=== PATIENT | male | born 1940 | race Two or more races ===

== ENCOUNTER 2023-01-19 12:41 | Inpatient (IN) | payer OTHER, MEDICAID ==
[~2023-01-19] VITALS: Ht 175.3 cm; Wt 77.0 kg
[2023-01-19] MEDS ORDERED: ASPirin 81 mg TAB PO ONE (13:30)
[2023-01-19 13:37] LABS: Basophils # (auto) 0.1 10 ^3/uL (0-0.2); Basophils % (auto) 1.2 % (0.0-2.0); Eosinophils # (auto) 0 10 ^3/uL (0-0.8); Eosinophils % (auto) 0.9 % (0.0-7.0); Hematocrit 39.5 % (41.0-53.0); Hemoglobin 13.5 g/dL (13.5-17.5); Lymphocytes # (auto) 0.7 10 ^3/uL (0.4-5.4); Lymphocytes % (auto) 13.1 % (10.0-50.0); Mean Corpuscular Hemoglobin 31.2 pg (28.0-32.0); Mean Corpuscular Hgb Conc. 34.2 g/dL (32.0-36.0); Mean Corpuscular Volume 91.2 fL (80.0-100.0); Monocytes # (auto) 0.1 10 ^3/uL (0-1.3); Monocytes % (auto) 2.9 % (0.0-12.0); Neutrophils # (auto) 4.2 10 ^3/uL (1.6-8.6); Neutrophils % (auto) 81.9 % (37.0-80.0); Nucleated Red Blood Cells % 0.1 %; Red Blood Cells 4.33 10^6/uL (4.5-5.90); Red Cell Distribution Width 14.8 % (11.8-14.3); White Blood Cell 5.1 10^3/uL (4.4-10.8)
[2023-01-19 14:01] LABS: INR 1.04 (0.9-1.15); Partial Thromboplastin Time 26.1 sec (24.6-33.4)
[2023-01-19 14:14] LABS: Albumin 3.8 g/dL (3.4-5.0); Calcium 8.9 mg/dL (8.5-10.1); Potassium 4.2 mmol/L (3.5-5.1)
[2023-01-19 14:18] LABS: BUN/Creatinine Ratio 18.6 (10.0-20.0); Bilirubin, Total 0.9 mg/dL (0.2-1.0); Total Protein 7.7 g/dL (6.4-8.2)
[2023-01-19] MEDS: SODIUM CHLORIDE 0.9% 1,000 ML IV SCH (16:00)
[2023-01-19] MEDS ORDERED: ACETAMINOPHEN 325 MG TAB PO PRN (16:00)
[2023-01-19] MEDS ORDERED: MORPHINE SULFATE INJ 2 MG/ml SYRG IV PRN (16:00)
[2023-01-19] MEDS ORDERED: NITROGLYCERIN 0.4 MG SL TAB SL PRN (16:00)
[2023-01-19] MEDS ORDERED: ONDANSETRON HCL 4 MG/2 ML VIAL IV PRN (16:00)
[2023-01-19] MEDS ORDERED: LISI-716 PO (16:07)
[2023-01-19] MEDS ORDERED: ATOR10TA52 PO (16:07)
[2023-01-19] MEDS ORDERED: DOXA4TAB6 PO (16:07)
[2023-01-19] MEDS ORDERED: FIN5T PO (16:07)
[2023-01-19] MEDS: ENOXAPARIN SOD 40 MG/0.4 ML SYRINGE SC SCH (16:41)
[2023-01-19] MEDS: ATORVASTATIN 20 MG TAB PO SCH (23:38)
[2023-01-20 04:53] LABS: Urine Bacteria NONE SEEN /hpf (None Seen); Urine Blood TRACE /uL (Negative); Urine Mucus FEW (None Seen); Urine Specific Gravity 1.026 (1.001-1.035); Urine WBC 3 /hpf (0 - 3)
[2023-01-20 05:00] VITALS: BP 141/58
[2023-01-20 05:04] LABS: Alcohol, Urine < 3.0 mg/dL (0-10); Amphetamine Screen, Urine NEGATIVE (NEGATIVE); Barbiturate Scree,Urine NEGATIVE (NEGATIVE); Benzodiazephine Screen, Urine NEGATIVE (NEGATIVE); Cannabinoid Screen, Urine NEGATIVE (NEGATIVE); Cocaine Screen, Urine NEGATIVE (NEGATIVE); Opiate Scree,Urine NEGATIVE (NEGATIVE); Phencyclidine Screen, Urine NEGATIVE (NEGATIVE)
[2023-01-20] MEDS: SODIUM CHLORIDE 0.9% 1,000 ML IV SCH (06:18)
[2023-01-20 06:28] LABS: Basophils # (auto) 0 10 ^3/uL (0-0.2); Basophils % (auto) 0.7 % (0.0-2.0); Eosinophils # (auto) 0.3 10 ^3/uL (0-0.8); Eosinophils % (auto) 5.9 % (0.0-7.0); Hematocrit 38.2 % (41.0-53.0); Lymphocytes # (auto) 0.8 10 ^3/uL (0.4-5.4); Mean Corpuscular Hemoglobin 30.9 pg (28.0-32.0); Mean Corpuscular Hgb Conc. 34.1 g/dL (32.0-36.0); Mean Corpuscular Volume 90.8 fL (80.0-100.0); Monocytes # (auto) 0.4 10 ^3/uL (0-1.3); Monocytes % (auto) 9.3 % (0.0-12.0); Neutrophils # (auto) 2.9 10 ^3/uL (1.6-8.6); Neutrophils % (auto) 65.1 % (37.0-80.0); Red Blood Cells 4.21 10^6/uL (4.5-5.90); Red Cell Distribution Width 14.6 % (11.8-14.3); White Blood Cell 4.4 10^3/uL (4.4-10.8)
[2023-01-20 06:30] LABS: Albumin 3.3 g/dL (3.4-5.0); Calcium 8.5 mg/dL (8.5-10.1)
[2023-01-20 06:34] LABS: BUN/Creatinine Ratio 19.8 (10.0-20.0); Bilirubin, Total 0.8 mg/dL (0.2-1.0); Total Protein 6.8 g/dL (6.4-8.2)
[2023-01-20 09:00] VITALS: BP 118/52
[2023-01-20] MEDS: FINASTERIDE 5 MG TAB PO SCH (09:53)
[2023-01-20] MEDS: LISINOPRIL 10 MG TAB PO SCH (09:53)
[2023-01-20] MEDS: ASPirin 81 mg TAB PO SCH (09:54)
[2023-01-20] MEDS: ENOXAPARIN SOD 40 MG/0.4 ML SYRINGE SC SCH (09:54)
[2023-01-20] MEDS ORDERED: PANTOPRAZOLE 40 MG TAB PO SCH (10:00)
[2023-01-20 13:00] VITALS: BP 101/65
[2023-01-20] MEDS ORDERED: LORazepam 2MG/ML-1ML VIAL IV ONE (14:15)
[2023-01-20] MEDS ORDERED: MECLIZINE HCL 25 MG TAB PO ONE (14:15)
[2023-01-20 16:59] VITALS: BP 138/55
[2023-01-20 20:00] VITALS: BP 149/71
[2023-01-20] MEDS: MECLIZINE HCL 25 MG TAB PO SCH (21:28)
[2023-01-20] MEDS: ATORVASTATIN 20 MG TAB PO SCH (21:28)
[2023-01-20 22:00] VITALS: BP 149/71
[2023-01-21] VITALS (7 sets, daily range): BP systolic 92–146; BP diastolic 53–64
[2023-01-21] MEDS: MECLIZINE HCL 25 MG TAB PO SCH ×3 (06:07→22:11)
[2023-01-21] MEDS: FINASTERIDE 5 MG TAB PO SCH (09:42)
[2023-01-21] MEDS: PANTOPRAZOLE 40 MG TAB PO SCH (09:42)
[2023-01-21] MEDS: ASPirin 81 mg TAB PO SCH (09:42)
[2023-01-21] MEDS: ENOXAPARIN SOD 40 MG/0.4 ML SYRINGE SC SCH (09:43)
[2023-01-21] MEDS: LISINOPRIL 10 MG TAB PO SCH (09:47)
[2023-01-21] MEDS ORDERED: PANTOPRAZOLE 40 MG TAB PO SCH (10:00)
[2023-01-21] MEDS: ATORVASTATIN 20 MG TAB PO SCH (22:11)
[2023-01-22 05:00] VITALS: BP 139/56
[2023-01-22] MEDS: MECLIZINE HCL 25 MG TAB PO SCH ×2 (05:34→13:30)
[2023-01-22 09:00] VITALS: BP 135/66
[2023-01-22] MEDS: FINASTERIDE 5 MG TAB PO SCH (09:52)
[2023-01-22] MEDS: PANTOPRAZOLE 40 MG TAB PO SCH (09:52)
[2023-01-22] MEDS: ASPirin 81 mg TAB PO SCH (09:52)
[2023-01-22] MEDS: LISINOPRIL 10 MG TAB PO SCH (09:53)
[2023-01-22] MEDS ORDERED: MECL25TA18 PO (11:07)
[2023-01-22 11:35] VITALS: BP 135/66
[2023-01-22 13:00] VITALS: BP 114/53
== END 2023-01-22 14:13 | disposition home or self-care (01) | DRG 149 ==
LOC: ER 12:41 → EDBD 12:41 → TELE 16:07 → TELE-EAST 22:16
PROVIDERS: ADMIT Nurse Practitioner Family; ATTEND Internal Medicine
DX: H81.13 Benign paroxysmal vertigo, bilateral (principal); I24.9 Acute ischemic heart disease, unspecified; J98.11 Atelectasis; E78.5 Hyperlipidemia, unspecified; E86.0 Dehydration; I10 Essential (primary) hypertension; F17.200 Nicotine dependence, unspecified, uncomplicated; I25.10 Atherosclerotic heart disease of native coronary artery without angina pectoris; R26.9 Unspecified abnormalities of gait and mobility; R00.1 Bradycardia, unspecified; N40.0 Benign prostatic hyperplasia without lower urinary tract symptoms; I45.10 Unspecified right bundle-branch block; I25.2 Old myocardial infarction
CPT/HCPCS: 36415; 70551; 71045; 80053; 80061; 80307; 81001; 83735; 83880; 84484; 85025; 85610; 85730; 93005; 93306; 97110; 97163; 97530; G0378

== ENCOUNTER 2024-09-09 09:00 | Emergency (ER) | payer OTHER, MEDICAID ==
[~2024-09-09] VITALS: Ht 175.3 cm; Wt 88.6 kg
[~2024-09-09 09:00] MED LIST: ATOR10TA52 PO; DOXA4TAB83 PO; FIN5T PO; LISI10TA34 PO; MECL-90 PO
[2024-09-09 09:44] VITALS: BP 132/74; PULSE 90; RESP 18; TEMP 98; O2SAT 96
--- NOTE | 2024-09-09 09:48 | ED.PDOC ---
SOB-HPI HPI Comments A 84 YEAR OLD MALE PRESENTS TO THE ED WITH CHIEF COMPLAINT OF COUGH. PATIENT REPORTS THAT HE HAS BEEN EXPERIENCING A COUGH WITH ASSOCIATED SORE THROAT AND HEADACHE SINCE 1AM THIS MORNING. PATIENT DENIES ANY N/V/D, ABDOMINAL PAIN, CHILLS, SOB, CHEST PAIN, OR DIZZINESS. PT IS ALERT, ORIENTATION X4 WITH NORMAL GAIT. NO OTHER SYMPTOMS REPORTED AT THIS TIME OF CARE. Chief Complaint: Flu like Time Seen by MD: 09:44 Reviewed notes: Nurses Notes, Medications, Allergies Mode of Arrival: Ambulatory Severity: Moderate Timing: Hours Duration: Since onset Context: At Rest PE Risk Factors: None History of: None Prehospital treatment: None Modifying Factors: Inhaler Associated Signs and Symptoms: Cough, Sore Throat If cough with SOB: Non-Productive Past Medical History PAST MEDICAL HISTORY: Asthma, HTN, [place] Surgical History: Hernia Repair Family History Family History: Reviewed,noncontributory to illness Social History Smoker: Non-Smoker Alcohol: Denies ETOH Use Drugs: Denies Drug Use Lives In: Home Constitutional: denies: chills, diaphoresis, fatigue, fever, malaise, sweats, weakness, others EENTM: reports: throat pain; denies: blurred vision, double vision, ear bleeding, ear discharge, ear drainage, ear pain, ear ringing, eye pain, eye redness, hearing loss, mouth pain, mouth swelling, nasal discharge, nose bleedi ng, nose congestion, nose pain, photophobia, tearing, throat swelling, voice changes, others Respiratory: reports: cough; denies: hemoptysis, orthopnea, SOB at rest, shortness of breath, SOB with excertion, stridor, wheezing, others Cardiovascular: denies: chest pain, dizzy spells, diaphoresis, Dyspnea on exertion, edema, irregular heart beat, left arm pain, lightheadedness, palpitations, PND, syncope, others Gastrointestinal: denies: abdomen distended, abdominal pain, blood streaked bowels, constipated, diarrhea, dysphagia, difficulty swallowing, hematemesis, melena, nausea, poor appetite, poor fluid intake, rectal bleeding, rectal pain, vomiting, others Genitourinary: denies: burning, dysuria, flank pain, frequency, hematuria, incontinence, penile discharge, penile sore, pain, testicle pain, testicle swelling, urgency, others Neurological: reports: headache; denies: dizziness, fainting, left sided numbness, left sided weakness, numbness, paresthesia, pre-existing deficit, right sided numbness, right sided weakness, seizure, speech problems, tingling, tremors, weakness, others Musculoskeletal: denies: back pain, gout, joint pain, joint swelling, muscle pain, muscle stiffness, neck pain, others Integumetry: denies: bruises, change in color, change in hair/nails, dryness, laceration, lesions, lumps, rash, wounds, others Allergic/Immunocompromised: denies: Difficulty Healing, Frequent Infections, Hives, Itching, others Hematologic/Lymphatic: denies: anemia, blood clots, easy bleeding, easy bruising, swollen glands, others Endocrine: denies: excessive hunger, excessive sweating, excessive thirst, excessive urination, flushing, intolerance to cold, intolerance to heat, unexplained weight gain, unexplained weight loss, others Psychiatric: denies: anxiety, bipolar disorder, depression, hopeless, panic disorder, schizophrenia, sleepless, suicidal, others All Other Systems: Reviewed and Negative Physical Exam General Appearance: No Apparent Distress, Normal HEENT: Normal ENT Inspection, PERRL/EOMI Neck: Full Range of Motion, Non-Tender, Normal, Normal Inspection Respiratory: Chest Non-Tender, Lungs Clear, No Accessory Muscle Use, No Respiratory Distress, Normal Breath Sounds Cardiovascular: No Edema, No JVD, No Murmur, No Gallop, Normal Peripheral Pulses, Regular Rate/Rhythm Breast Exam: Deferred Gastrointestinal: No Organomegaly, Non Tender, No Pulsatile Mass, Normal Bowel Sounds, Soft Genitalia: Deferred Pelvic: Deferred Rectal: Deferred Extremities: No calf tenderness, Normal capillary refill, Normal inspection, Normal range of motion, Non-tender, No pedal edema Musculoskeletal : Apperance: Normal Neurologic: Alert, shop coordinator II-XII nml as Tested, No Motor Deficits, Normal Affect, Normal Mood, No Sensory Deficits Cerebellar Function: Normal Reflexes: Normal Skin: Dry, Normal Color, Warm Lymphatic: No Adenopathy Was a procedure done? Was a procedure done?: No Differential Dx Differential Diagnosis: Asthma, Bronchitis, Pneumonia, Sinusitis, Allergic Rhinitis, Otitis Media, Pharyngitis X-Ray, Labs, Meds, VS Vital Signs Date Time Temp Pulse Resp B/P (MAP) Pulse Ox O2 Delivery O2 Flow Rate FiO2 09/09/24 09:44 98.0 90 18 132/74 (93) 96 98.0 09/09/24 09:08 97.9 94 18 136/70 (92) 95 Current Medications Medications (Trade) Dose Ordered Sig/Anne Route Start Time Stop Time Status Last Admin Ceftriaxone Sodium (Rocephin) 1,000 mg ONCE ONCE IM 09/09/24 09:45 09/09/24 09:46 DC 09/09/24 10:00 CHEST XR: PATIENT: MADALYN LAROSECCT: [id number]: [id number] : 1940 LOC: ER ROOM / BED: / AGE / SEX: 84 / M ADM STATUS: REG ER SERVICE 0 ORDERING PHYSICIAN: SHIRA DELGADO PROCEDURE(s): CXR2 - CHEST TWO VIEWS ROUTINE REASON: COUGH ORDER NUMBER(s): [id number], ACCESSION NUMBER(s): [id number] CHEST RADIOGRAPH Indication: COUGH Technique: Frontal and lateral view of the chest was obtained Comparison: None FINDINGS: Lines and Tubes: None Lungs: Clear Pleura: No effusion. No pneumothorax. Cardiomediastinal contours: Unremarkable Bones: Unremarkable IMPRESSION: 1. 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 2. Normal heart size 3. No infiltrates. X-Ray, Labs, Meds, VS Comment EXTERNAL MEDICAL RECORDS REVIEWED: [NONE] INDEPENDENT HISTORIANS: [NONE] SOCIAL DETERMINANTS OF HEALTH: [NONE] LABS ORDERED: NONE REVIEWED AND INTERPRETED RESULTS: CHEST XR IMAGING ORDERED: CHEST XR TREATMENTS ORDERED: ROCEPHIN 1G IM PROCEDURES PERFORMED: NONE CRITICAL CARE TIME: NONE BASED ON HISTORY OF PRESENT ILLNESS, AND PHYSICAL EXAM, PATIENT WILL BE DISCHARGED HOME. DISCUSSED PLAN FOR DISCHARGE HOME WITH RX []. MEDICATION WARNINGS GIVEN. SHARED DECISION MAKING: DISCUSSED WITH PATIENT THAT THEIR WORKUP WAS NORMAL. PATIENT INSTRUCTED TO FOLLOW UP WITH PRIMARY CARE PROVIDER IN 1-2 DAYS FOR RE- EVALUATION OF SYMPTOMS. PATIENT VERBALIZES UNDERSTANDING TO RETURN TO ED FOR NEW OR WORSENING SYMPTOMS OR IF FOLLOW UP WITH PCP CANNOT BE OBTAINED. PATIENT FEELS COMFORTABLE GOING HOME AT THIS TIME. ALL QUESTIONS ADDRESSED AT TIME OF DISCHARGE. Time of 1ST Reevaluation: 10:00 Reevaluation 1ST: Unchanged Patient Education/Counseling: Diagnosis, Treatment Family Education/Counseling: No Family Present Departure 1 Departure Time of Disposition: 10:23 Impression: Primary Impression: Acute tonsillitis Qualified Codes: J03.90 - Acute tonsillitis, unspecified Additional Impression: URI (upper respiratory infection) Qualified Codes: J03.90 - Acute tonsillitis, unspecified Disposition: HOME / SELF CARE / HOMELESS Condition: Stable Additional Instructions: FOLLOW-UP WITH PCP IN 1 TO 2 DAYS. TAKE MEDICATIONS PRESCRIBED. RETURN TO ED FOR ANY NEW OR WORSENING SYMPTOMS. e-Prescriptions Acetaminophen (Tylenol 8 Hour Arthritis) 650 Mg Tab 650 MG PO TID, #30 TAB Prov: SHIRA DELGADO 09/09/24 Azithromycin (Azithromycin) 500 Mg Tab 1 TAB PO DAILY, #5 TAB Prov: SHIRA DELGADO 09/09/24 Discharged With: Self Critical Care Note Critical Care Time?: No Stability Stability form required: No Heart Score Heart Score: Heart Score Response (Comments) Value History N/A 0 EKG N/A 0 Age N/A 0 Risk Factors N/A 0 Troponin N/A 0 Total 0 I personally scribed for SHIRA DELGADO ([email or web address]) on 09/09/24 at 09:48. Electronically submitted by Pk Dunn ([email or web address]). I personally scribed for SHIRA DELGADO ([email or web address]) on 09/09/24 at 10:20. Electronically submitted by Pk Dunn ([email or web address]). I personally scribed for SHIRA DELGADO ([email or web address]) on 09/09/24 at 10:23. Electronically submitted by Pk Dunn ([email or web address]). SHIRA DELGADO Sep 09, 2024 09:48
[2024-09-09] MEDS: cefTRIAXone SOD 1,000 MG VL IM ONE (10:00)
--- NOTE | 2024-09-09 10:06 | DVH ---
CHEST RADIOGRAPH Indication: COUGH Technique: Frontal and lateral view of the chest was obtained Comparison: None FINDINGS: Lines and Tubes: None Lungs: Clear Pleura: No effusion. No pneumothorax. Cardiomediastinal contours: Unremarkable Bones: Unremarkable IMPRESSION: 1. 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 2. Normal heart size 3. No infiltrates.
[2024-09-09] MEDS ORDERED: AZIT500T66 PO (10:29)
[2024-09-09] MEDS ORDERED: ACET-1080 PO (10:29)
== END 2024-09-09 10:53 | disposition home or self-care (01) ==
LOC: ER 09:00
DX: J03.90 Acute tonsillitis, unspecified (principal); J06.9 Acute upper respiratory infection, unspecified; I10 Essential (primary) hypertension; J45.909 Unspecified asthma, uncomplicated; I25.2 Old myocardial infarction; Z98.890 Other specified postprocedural states
CPT/HCPCS: 71046; 96372; 99283; J0696

== ENCOUNTER 2024-10-03 13:06 | Emergency (ER) | payer OTHER, MEDICAID ==
[~2024-10-03] VITALS: Ht 175.3 cm; Wt 3.4 kg
[~2024-10-03 13:06] MED LIST changes: +ACET-1080 PO; +AZIT500T66 PO
[2024-10-03 15:46] VITALS: BP 153/59; PULSE 60; RESP 16; TEMP 97.5; O2SAT 95
--- NOTE | 2024-10-03 15:48 | ED.PDOC ---
SOB-HPI HPI Comments 84-year-old patient presents to the emergency room for a cough for more than 30 days. Patient states cough is productive of white phlegm. Patient states cough is worse at night. Patient denies shortness of breath. Patient had inhaler that he is using for cough. Patient denies any fever, muscle aches or chills. Patient states that he was sent here by his primary care doctor. Patient states that his primary care doctor did not give him any prescriptions for the cough or infection. Chief Complaint: Cough Time Seen by MD: 13:34 Reviewed notes: Nurses Notes Information Source: Patient Mode of Arrival: Ambulatory Past Medical History PAST MEDICAL HISTORY: Asthma, HTN, [place] Surgical History: Hernia Repair Family History Family History: Reviewed,noncontributory to illness Social History Smoker: Non-Smoker Alcohol: Denies ETOH Use Drugs: Denies Drug Use Lives In: Home Constitutional: denies: chills, diaphoresis, fatigue, fever, malaise, sweats, weakness, others EENTM: denies: blurred vision, double vision, ear bleeding, ear discharge, ear drainage, ear pain, ear ringing, eye pain, eye redness, hearing loss, mouth pain, mouth swelling, nasal discharge, nose bleeding, nose congestion, nose pain, photophobia, tearing, throat pain, throat swelling, voice changes, others Respiratory: reports: cough (productive of white phlegm) Cardiovascular: denies: chest pain, dizzy spells, diaphoresis, Dyspnea on exertion, edema, irregular heart beat, left arm pain, lightheadedness, palpitations, PND, syncope, others Gastrointestinal: denies: abdomen distended, abdominal pain, blood streaked bowels, constipated, diarrhea, dysphagia, difficulty swallowing, hematemesis, melena, nausea, poor appetite, poor fluid intake, rectal bleeding, rectal pain, vomiting, others Genitourinary: denies: burning, dysuria, flank pain, frequency, hematuria, incontinence, penile discharge, penile sore, pain, testicle pain, testicle swe lling, urgency, others Neurological: denies: dizziness, fainting, headache, left sided numbness, left sided weakness, numbness, paresthesia, pre-existing deficit, right sided numbness, right sided weakness, seizure, speech problems, tingling, tremors, weakness, others Musculoskeletal: denies: back pain, gout, joint pain, joint swelling, muscle pain, muscle stiffness, neck pain, others Integumetry: denies: bruises, change in color, change in hair/nails, dryness, laceration, lesions, lumps, rash, wounds, others Allergic/Immunocompromised: denies: Difficulty Healing, Frequent Infections, Hives, Itching, others Hematologic/Lymphatic: denies: anemia, blood clots, easy bleeding, easy bruising, swollen glands, others Endocrine: denies: excessive hunger, excessive sweating, excessive thirst, excessive urination, flushing, intolerance to cold, intolerance to heat, unexplained weight gain, unexplained weight loss, others Psychiatric: denies: anxiety, bipolar disorder, depression, hopeless, panic disorder, schizophrenia, sleepless, suicidal, others All Other Systems: Reviewed and Negative Physical Exam General Appearance: No Apparent Distress, Normal HEENT: Normal ENT Inspection, Pharynx Normal, TMs Normal Neck: Full Range of Motion, Non-Tender, Normal, Normal Inspection Respiratory: Chest Non-Tender, Lungs Clear, No Accessory Muscle Use, No Respiratory Distress, Normal Breath Sounds Cardiovascular: No Edema, No JVD, No Murmur, No Gallop, Normal Peripheral Pulses, Regular Rate/Rhythm Breast Exam: Deferred Gastrointestinal: No Organomegaly, Non Tender, No Pulsatile Mass, Normal Bowel Sounds, Soft Genitalia: Deferred Pelvic: Deferred Rectal: Deferred Extremities: No calf tenderness, Normal capillary refill, Normal inspection, Normal range of motion, Non-tender, No pedal edema Musculoskeletal : Apperance: Normal Neurologic: Alert, assurance associate II-XII nml as Tested, No Motor Deficits, Normal Affect, Normal Mood, No Sensory Deficits Cerebellar Function: Normal Reflexes: Normal Skin: Dry, Normal Color, Warm Lymphatic: No Adenopathy Was a procedure done? Was a procedure done?: No Differential Dx Differential Diagnosis: Bronchitis, Pneumonia X-Ray, Labs, Meds, VS Vital Signs Date Time Temp Pulse Resp B/P (MAP) Pulse Ox O2 Delivery O2 Flow Rate FiO2 10/03/24 15:46 60 16 95 Room Air 10/03/24 15:46 97.5 60 16 153/59 (90) 95 97.5 10/03/24 13:38 97.5 60 16 153/59 (90) 95 PATIENT: HOMAR LAROSELISANDRO: [id number]: [id number] : 1940 LOC: ER ROOM / BED: / AGE / SEX: 84 / M ADM STATUS: REG ER SERVICE [id number] ORDERING PHYSICIAN: FELIPE DE JESUS PROCEDURE(s): CXR2 - CHEST TWO VIEWS ROUTINE REASON: cough for more than 30 days ORDER NUMBER(s): [id number], ACCESSION NUMBER(s): [id number] EXAM: XY CHEST TWO VIEWS ROUTINE TECHNIQUE: Two radiographic views of the chest CLINICAL HISTORY: cough for more than 30 days COMPARISON: XY CHEST TWO VIEWS ROUTINE on DOS: 09/09/24 Findings/Impression: Frontal and lateral chest radiographs demonstrate no acute osseous or superficial soft tissue abnormalities. The trachea is midline. The cardiac silhouette and mediastinum are within normal limits. No pneumothorax, pleural effusions, or consolidations. ATED BY: WENDIE ROCHA DO DICTATED DATE/TIME: 10/03/241613 SIGNED BY: WENDIE ROCHA DO SIGNED DATE/TIME: 10/03/241613 CC: X-Ray, Labs, Meds, VS Comment On re-evaluation patient has symptomatic improvement. Patient is stable for discharge at this time. All test results and diagnostic imaging have been interpreted. All diagnostic findings, discharge care, and education instruction provided to the patient. Follow-up with PCP in 2-3 days Patient verbalized understanding, discharge instructions and agrees to treatment plan Vital signs are stable Patient is ambulatory Patient advised of which symptoms necessitate a return visit to the emergency room. Patient to return emergency room for any new worsening symptoms. Patient is aware that the purpose of this visit is for an acute medical emergency requiring emergent stabilization. Chronic conditions, including malignancies have not been ruled out. Patient is instructed to follow up with PCP as directed for continued care and workup. If unable to arrange follow up, patient is to return to the emergency room for reassessment. Patient was given verbal and written discharge instructions and acknowledges understanding Time of 1ST Reevaluation: 16:31 Reevaluation 1ST: Improved Patient Education/Counseling: Diagnosis, Treatment, Prognosis Family Education/Counseling: No Family Present Departure 1 Departure Time of Disposition: 16:35 Impression: Primary Impression: Bronchitis Disposition: 01 HOME / SELF CARE / HOMELESS Condition: Stable e-Prescriptions Amoxicillin & Pot Clavulanate (AUGMENTIN TABLET) 875 Mg Tb 875 MG PO BID for 10 Days, #20 TAB 0 Refills Prov: FELIPE DE JESUS 10/03/24 [id number] (Bromphen/Pseudoephedrine 30-2-10 mg/5Ml) 1 Syp Syp 10 ML PO Q6HP PRN for 10 Days, #400 ML Prov: FELIPE DE JESUS 10/03/24 Critical Care Note Critical Care Time?: No Stability Stability form required: No Heart Score Heart Score: Heart Score Response (Comments) Value History N/A 0 EKG N/A 0 Age N/A 0 Risk Factors N/A 0 Troponin N/A 0 Total 0 FELIPE DE JESUS [facility] Oct 03, 2024 15:48
--- NOTE | 2024-10-03 16:17 | DVH ---
EXAM: XY CHEST TWO VIEWS ROUTINE TECHNIQUE: Two radiographic views of the chest CLINICAL HISTORY: cough for more than 30 days COMPARISON: XY CHEST TWO VIEWS ROUTINE on DOS: 09/09/24 Findings/Impression: Frontal and lateral chest radiographs demonstrate no acute osseous or superficial soft tissue abnorma lities. The trachea is midline. The cardiac silhouette and mediastinum are within normal limits. No pneumothorax, pleural effusions, or consolidations.
[2024-10-03] MEDS ORDERED: PSEU1SYP6 PO (16:33)
[2024-10-03] MEDS ORDERED: AUG875T PO (16:33)
== END 2024-10-03 16:40 | disposition home or self-care (01) ==
LOC: ER 13:06
DX: J40 Bronchitis, not specified as acute or chronic (principal); I10 Essential (primary) hypertension; I25.2 Old myocardial infarction; Z98.890 Other specified postprocedural states
CPT/HCPCS: 71046

== ENCOUNTER 2025-01-06 12:05 | Emergency (ER) | payer OTHER, MEDICAID ==
[~2025-01-06] VITALS: Ht 175.3 cm; Wt 74.7 kg
[~2025-01-06 12:05] MED LIST changes: +AUG875T PO; +PSEU1SYP6 PO
--- NOTE | 2025-01-06 12:43 | DVH ---
CHEST RADIOGRAPH Indication: flu like symptoms Technique: Single frontal view of the chest was obtained COMPARISON: XY CHEST PORTABLE on DOS: 01/19/23 FINDINGS: Lines and Tubes: None Lungs: Clear Pleura: No effusion. No pneumothorax. Cardiomediastinal contours: Unremarkable Bones: Unremarkable IMPRESSION: 1. No acute disease.
[2025-01-06 12:57] LABS: Basophils # (auto) 0.1 10 ^3/uL (0-0.2); Basophils % (auto) 1.3 % (0.0-2.0); Eosinophils # (auto) 0.3 10 ^3/uL (0-0.8); Eosinophils % (auto) 7.9 % (0.0-7.0); Hematocrit 40.7 % (41.0-53.0); Hemoglobin 13.8 g/dL (13.5-17.5); Lymphocytes # (auto) 0.7 10 ^3/uL (0.4-5.4); Lymphocytes % (auto) 16.7 % (10.0-50.0); Mean Corpuscular Hemoglobin 31.3 pg (28.0-32.0); Monocytes # (auto) 0.4 10 ^3/uL (0-1.3); Monocytes % (auto) 10.6 % (0.0-12.0); Neutrophils # (auto) 2.5 10 ^3/uL (1.6-8.6); Neutrophils % (auto) 63.5 % (37.0-80.0); Platelet Count (auto) 228 10^3/uL (140-450); Red Blood Cells 4.42 10^6/uL (4.5-5.90); Red Cell Distribution Width 14.5 % (11.8-14.3)
[2025-01-06 13:00] LABS: Rapid Influenza A Negative (Negative); Rapid Influenza B Negative (Negative)
[2025-01-06 13:01] LABS: COVID19 ANTIGEN SOFIA FIA NEGATIVE (NEGATIVE)
[2025-01-06 13:10] LABS: Alanine Aminotransferase 20 U/L (7-40); Albumin 4.2 g/dL (3.2-4.8); Alkaline Phosphatase 57 U/L (46-116); Anion Gap 7 (5-15); Aspartate Aminotransferase 19 U/L (13-40); BUN/Creatinine Ratio 12.8 (10.0-20.0); Blood Urea Nitrogen 15 mg/dL (9-23); Calcium 9.3 mg/dL (8.7-10.4); Carbon Dioxide 27 mmol/L (20-31); Chloride 106 mmol/L (98-107); Potassium 3.9 mmol/L (3.5-5.1); Sodium 140 mmol/L (136-145); Total Protein 8.1 g/dL (5.7-8.2)
[2025-01-06 13:11] LABS: Bilirubin, Total 0.8 mg/dL (0.2-1.0)
[2025-01-06 13:13] LABS: Glucose 117 mg/dL (74-106)
--- NOTE | 2025-01-06 13:43 | ED.PDOC ---
SOB-HPI HPI Comments 84 y/o M presents with flu-like symptoms for the past 3 days. Patient is a poor historian and a [place]ian speaker. Patient endorses on being afebrile and having a nonproductive cough. Denies having any chest pain, shortness of breath, nausea, vomiting, chills, urinary symptoms, or further associated symptoms. Vitals: temperature of 98.5F, pulse of 77, respiratory rate of 20, blood pressure of 137/65, SpO2 of 97%RA Past medical history: HTN, on Plavix and ASA, HLD, CAD Past surgical history: Cardiac stents, unspecified abdominal surgery Larose: HPI: Poor Historian. REVIEW OF SYSTEMS: CONSTITUTIONAL: Denies acute: fever, diaphoresis, chills, HEAD: Denies acute: headache, photophobia Eyes: Denies acute: Double vision, vision loss, eye pain, eye discharge. EARS: Denies acute: tinnitus, hearing loss, ear discharge, ear pain, THROAT: Denies acute: sore throat, swelling, difficulty swallowing , pain with swallowing, change in voice. NECK: Denies acute: neck pain, neck swelling, stiff neck. HEART: Denies acute : chest pain, palpitations, LUNGS: Denies acute: SOB, wheezing, hemoptysis ABDOMEN: Denies acute: abdominal pain, Nausea, Vomiting, diarrhea, melena , hematemesis, hematochezia SKIN: Denies acute: rash, redness, lesions, itchiness. EXTREMITIES: Denies acute: calf pain, numbness, tingling, weakness, denies pain in extremity. Denies acute: Low back pain. Neuro: Denies acute: focal neurological deficit, motor or sensory focal neurological deficit, tremors, seizure like activity, confusion, dizziness, change in mental status, loss of bowel or bladder function, cauda equina like symptoms. : Denies acute: dysuria, hematuria, flank pain, increase in urinary frequency. PSYCH: Denies acute: hallucination, suicidal ideation, homicidal ideation. PHYSICAL EXAM: General: ---no-----acute distress, awake and alert. Head: normocephalic, atraumatic. Neck: supple, trachea is midline, no swelling. Throat: Normal phonation. Eyes:, no erythema, no purulent discharge, no proptosis, no icterus. Heart: regular rate, regular rhythm, no significant murmur appreciated. Lungs: no apparent respiratory distress, No wheezing, no rhonchi, no crackles. No stridors Clear to auscultation bilaterally. Abdomen: non tender to palpation, non distended, soft, no guarding, no rebound, + bowel sounds. Neuro: Awake, Alert, oriented to name, self, situation, follows commands GCS=15. Speech is normal. Skin: no petechia, no purpura, no cyanosis, non-pale, not jaundice. Lower extremities: --no - Pitting edema no deformity, no focal swelling, no calf TTP. Makes eye contact. moves all four extremities. Ambulating in the ED independently. ED COURSE: Chief Complaint: Flu like Time Seen by MD: 12:10 Reviewed notes: Nurses Notes, Allergies Information Source: Patient Mode of Arrival: Ambulatory Past Medical History PAST MEDICAL HISTORY: Asthma, HTN, [place] Surgical History: Hernia Repair Family History Family History: Reviewed,noncontributory to illness Social History Smoker: Non-Smoker Alcohol: Denies ETOH Use Drugs: Denies Drug Use Lives In: Home Was a procedure done? Was a procedure done?: No Differential Dx Differential Diagnosis: Asthma, Pneumonia, Sinusitis, Allergic Rhinitis, Other (DDx include ACS, unstable angina, anxiety, PE, pneumothroax, neoplasm, cardiac ischemia, COPD, asthma, CHF, pleural effusion, tobacco abuse, pneumonia, hypoxia, hypercapnia, anemia., infection/sepsis., pulmonary edema. Asthma, Cardiac tamponade, infection.) X-Ray, Labs, Meds, VS Vital Signs Date Time Temp Pulse Resp B/P (MAP) Pulse Ox O2 Delivery O2 Flow Rate FiO2 01/06/25 15:06 80 19 97 Room Air* 0 21 01/06/25 15:06 98.0 73 15 130/71 (90) 96 98.0 01/06/25 14:48 16 97 Room Air* 0 21 01/06/25 12:26 98.5 77 20 137/65 (89) 97 98.5 Lab Test 01/06/25 15:47 01/06/25 12:40 01/06/25 12:21 Range/Units Troponin I High Sensitivity 5 4 </=54 ng/L White Blood Count 4.0 L 4.4-10.8 10^3/uL Red Blood Count 4.42 L 4.5-5.90 10^6/uL Hemoglobin 13.8 13.5-17.5 g/dL Hematocrit 40.7 L 41.0-53.0 % Mean Corpuscular Volume 92.0 80.0-100.0 fL Mean Corpuscular Hemoglobin 31.3 28.0-32.0 pg Mean Corpuscular Hemoglobin Concent 34.0 32.0-36.0 g/dL Red Cell Distribution Width 14.5 H 11.8-14.3 % Platelet Count 228 140-450 10^3/uL Mean Platelet Volume 6.7 L 6.9-10.8 fL Neutrophils (%) (Auto) 63.5 37.0-80.0 % Lymphocytes (%) (Auto) 16.7 10.0-50.0 % Monocytes (%) (Auto) 10.6 0.0-12.0 % Eosinophils (%) (Auto) 7.9 H 0.0-7.0 % Basophils (%) (Auto) 1.3 0.0-2.0 % Neutrophils # (Auto) 2.5 1.6-8.6 10 ^3/uL Lymphocytes # (Auto) 0.7 0.4-5.4 10 ^3/uL Monocytes # (Auto) 0.4 0-1.3 10 ^3/uL Eosinophils # (Auto) 0.3 0-0.8 10 ^3/uL Basophils # (Auto) 0.1 0-0.2 10 ^3/uL Nucleated Red Blood Cells 0.0 % Sodium Level 140 136-145 mmol/L Potassium Level 3.9 3.5-5.1 mmol/L Chloride Level 106 98-107 mmol/L Carbon Dioxide Level 27 20-31 mmol/L Anion Gap 7 5-15 Blood Urea Nitrogen 15 9-23 mg/dL Creatinine 1.17 0.700-1.30 mg/dL Glomerular Filtration Rate Calc 61 >90 mL/min BUN/Creatinine Ratio 12.8 10.0-20.0 Serum Glucose 117 H 74-106 mg/dL Lactic Acid Level 1.4 0.4-2.0 mmol/L Calcium Level 9.3 8.7-10.4 mg/dL Total Bilirubin 0.8 0.2-1.0 mg/dL Aspartate Amino Transferase (AST) 19 13-40 U/L Alanine Aminotransferase (ALT) 20 7-40 U/L Alkaline Phosphatase 57 46-116 U/L B-Type Natriuretic Peptide 27.19 0-100 pg/mL Total Protein 8.1 5.7-8.2 g/dL Albumin 4.2 3.2-4.8 g/dL Influenza Type A Antigen Negative Negative Influenza Type B Antigen Negative Negative SARS-CoV-2 Antigen (Rapid) Negative NEGATIVE Current Medications Medications (Trade) Dose Ordered Sig/Anne Route Start Time Stop Time Status Last Admin Albuterol (Ventolin Medneb) 2.5 mg ONCE ONCE NEB 01/06/25 14:30 01/06/25 14:31 DC 01/06/25 14:47 Ipratropium [place] (Atrovent Medneb) 1 mg ONCE ONCE NEB 01/06/25 14:30 01/06/25 14:31 DC 01/06/25 14:47 Prednisone 20 mg ONCE ONCE PO 01/06/25 14:30 01/06/25 14:31 DC 01/06/25 15:02 [place] [id number] Ph: [phone] DIAGNOSTIC IMAGING Diagnostic Imaging Report : [id number] Signed PATIENT: GRANT LAROSE ACCT: [id number] UNIT: [id number] : 1940 LOC: ER ROOM / BED: / AGE / SEX: 84 / M ADM STATUS: REG ER SERVICE 1212 ORDERING PHYSICIAN: MARGRET WEEKS DO PROCEDURE(s): CXRP - CHEST PORTABLE REASON: flu like symptoms ORDER NUMBER(s): [id number], ACCESSION NUMBER(s): [id number] CHEST RADIOGRAPH Indication: flu like symptoms Technique: Single frontal view of the chest was obtained COMPARISON: XY CHEST PORTABLE on DOS: 01/19/23 FINDINGS: Lines and Tubes: None Lungs: Clear Pleura: No effusion. No pneumothorax. Cardiomediastinal contours: Unremarkable Bones: Unremarkable IMPRESSION: 1. No acute disease. ATED BY: PAVITHRA GOMEZ MD DICTATED DATE/TIME: 01/06/25 1240 SIGNED BY: PAVITHRA GOMEZ MD SIGNED DATE/TIME: 01/06/25 1240 CC: Time of 1ST Reevaluation: 12:10 Reevaluation 1ST: Unchanged Patient Education/Counseling: Diagnosis, Treatment Family Education/Counseling: No Family Present Comments Patient presented with the above HPI.--respiratory symptoms----workup was initiated. patient was found with the above mentioned diagnosis. the following medications were ordered: please refer to order lists of meds and tests obtained by myself Dr. Weeks. Patient ED course and VS have been stabilized. Patient has been reassessed in the ED and remained in a stable condition. Pertinent incidental findings were discussed with the patient and/or family. Patient/family voices understanding and is agreeable with plan. Patient has been observed in the ED adequate length of time to insure improvement/stability. Escalation of care considered: Consideration of escalation to observation or admission Patient was DISCHARGED home in a stable condition. All the reports of any imaging studies that were ordered by myself were reviewed by myself. Departure 1 Departure Time of Disposition: 13:44 Impression: Primary Impression: URI (upper respiratory infection) Additional Impression: Bronchitis Disposition: 01 HOME / SELF CARE / HOMELESS Condition: Stable Additional Instructions: Additional instructions: You MUST follow-up with your primary care/family doctor in 1 to 2 days. If you are unable to see your primary care/family doctor, please return to our emergency room for re-assessment and re-evaluation in 1 to 2 days. Return to the emergency room here in our facility or to the nearest ER [facility] if your symptoms change or worsen. CONSULTATIONS: you MUST Follow-up for consultation as soon as possible with: Adequate fluid hydration. e-Prescriptions Azithromycin (Zithromax Tri-Nadir) 500 Mg Tab 500 MG PO DAILY for 6 Days, #6 TAB Prov: MARGRET WEEKS DO 01/06/25 Discharged With: Self Critical Care Note Critical Care Time?: No Heart Score Heart Score: Heart Score Response (Comments) Value History Slightly Suspicious 0 EKG Normal 0 Age >65 2 Risk Factors No known risk factors 0 Troponin Normal limit 0 Total 2 I personally scribed for MARGRET WEEKS DO ([email or web address]) on 01/06/25 at 13:43. Electronically submitted by Jhonny Quintero ([email or web address]). I personally scribed for MARGRET WEEKS DO ([email or web address]) on 01/06/25 at 13:45. Electronically submitted by Jhonny Quintero ([email or web address]). MARGRET WEEKS DO January 06, 2025 13:43
[2025-01-06] MEDS: IPRATROPIUM BROM 0.5 MG/2.5ML INH SOL NEB ONE (14:47)
[2025-01-06] MEDS: ALBUTEROL SULF 2.5 MG/0.5ML(0.5%) NEB SOLN NEB ONE (14:47)
[2025-01-06] MEDS: predniSONE 20 MG TAB PO ONE (15:02)
[2025-01-06 15:06] VITALS: BP 130/71; PULSE 80; RESP 19; TEMP 98; O2SAT 97
[2025-01-06] MEDS ORDERED: AZITTAB2 PO (16:04)
== END 2025-01-06 16:21 | disposition home or self-care (01) ==
LOC: ER 12:12
DX: J06.9 Acute upper respiratory infection, unspecified (principal); J40 Bronchitis, not specified as acute or chronic; I10 Essential (primary) hypertension; E78.5 Hyperlipidemia, unspecified; I21.9 Acute myocardial infarction, unspecified; I25.10 Atherosclerotic heart disease of native coronary artery without angina pectoris; Z98.890 Other specified postprocedural states; Z20.822 Contact with and (suspected) exposure to COVID-19; Z95.5 Presence of coronary angioplasty implant and graft; Z79.899 Other long term (current) drug therapy
CPT/HCPCS: 36415; 71045; 80053; 83605; 83880; 84484; 85025; 87426; 87804; 94640; 99284; J7512

== ENCOUNTER 2025-01-28 14:21 | Inpatient (IN) | payer OTHER, MEDICAID ==
[~2025-01-28] VITALS: Ht 175.3 cm; Wt 75.4 kg
[~2025-01-28 14:21] MED LIST changes: +AZITTAB2 PO
--- NOTE | 2025-01-28 14:47 | ED.PDOC ---
History of Present Illness HPI Comments 85-year-old male came to the ER stating that he has been having cough chest pain shortness a breath for the past two days progressively getting worse. Chest pain radiate to the left shoulder. He has not taken any medication to relieve the chest pain. He is unable to take deep breaths without coughing. Denies any fever. He does have a history of coronary artery disease hypertension. Denies any other symptoms. Chief Complaint: Cough Time Seen by MD: 14:29 Reviewed Notes: Nurses Notes, Medications, Allergies Allergies: Coded Allergies: NO KNOWN ALLERGIES (Unverified , 01/19/23) Home Meds Active Scripts Azithromycin (Zithromax Tri-Nadir) 500 Mg Tab, 500 MG PO DAILY for 6 Days, #6 TAB Prov:MARGRET WEEKS DO 01/06/25 Amoxicillin & Pot Clavulanate (AUGMENTIN TABLET) 875 Mg Tb, 875 MG PO BID for 10 Days, #20 TAB 0 Refills Prov:FELIPE DE JESUS TOY STUFFER 10/03/24 Zqvrmwhseyr-Opqygnge-Jc (Bromphen/Pseudoephedrine 30-2-10 mg/5Ml) 1 Syp Syp, 10 ML PO Q6HP PRN for 10 Days, #400 ML Prov:FELIPE DE JESUS TOY STUFFER 10/03/24 Acetaminophen (Tylenol 8 Hour Arthritis) 650 Mg Tab, 650 MG PO TID, #30 TAB Prov:SHIRA DELGADO 09/09/24 Azithromycin (Azithromycin) 500 Mg Tab, 1 TAB PO DAILY, #5 TAB Prov:SHIRA DELGADO 09/09/24 Meclizine Hcl (Meclizine Hcl) 25 Mg Tab, 25 MG PO TIDP PRN for 10 Days, #30 TAB Prov:ABRAM CORCORAN MD 01/22/23 Reported Medications Atorvastatin Calcium (ATORVASTATIN CALCIUM) 10 Mg Tab, 1 TAB PO 01/19/23 Finasteride (Finasteride) 5 Mg Tab, 1 TAB PO DAILY 01/19/23 Doxazosin Mesylate (Doxazosin Mesylate) 4 Mg Tab, 1 TAB PO 01/19/23 Lisinopril (Lisinopril) 10 Mg Tab, 0.5 TAB PO DAILY 01/19/23 Information Source: Patient Mode of Arrival: Ambulatory Severity: Moderate Timing: Days Duration: Since onset Past Medical History PAST MEDICAL HISTORY: Asthma, HTN, [place] Surgical History: Hernia Repair Family History Family History: Reviewed,noncontributory to illness Social History Smoker: Non-Smoker Alcohol: Denies ETOH Use Drugs: Denies Drug Use Lives In: Home Constitutional: denies: chills, diaphoresis, fatigue, fever, malaise, sweats, weakness, others EENTM: denies: blurred vision, double vision, ear bleeding, ear discharge, ear drainage, ear pain, ear ringing, eye pain, eye redness, hearing loss, mouth pain, mouth swelling, nasal discharge, nose bleeding, nose congestion, nose pain, photophobia, tearing, throat pain, throat swelling, voice changes, others Respiratory: reports: cough, shortness of breath; denies: hemoptysis, orthopnea, SOB at rest, SOB with excertion, stridor, wheezing, others Cardiovascular: reports: chest pain; denies: dizzy spells, diaphoresis, Dyspnea on exertion, edema, irregular heart beat, left arm pain, lightheadedness, palpitations, PND, syncope, others Gastrointestinal: denies: abdomen distended, abdominal pain, blood streaked bowels, constipated, diarrhea, dysphagia, difficulty swallowing, hematemesis, melena, nausea, poor appetite, poor fluid intake, rectal bleeding, rectal pain, vomiting, others Genitourinary: denies: burning, dysuria, flank pain, frequency, hematuria, incontinence, penile discharge, penile sore, pain, testicle pain, testicle swelling, urgency, others Neurological: denies: dizziness, fainting, headache, left sided numbness, left sided weakness, numbness, paresthesia, pre-existing deficit, right sided numbness, right sided weakness, seizure, speech problems, tingling, tremors, weakness, others Musculoskeletal: denies: back pain, gout, joint pain, joint swelling, muscle pain, muscle stiffness, neck pain, others Integumetry: denies: bruises, change in color, change in hair/nails, dryness, laceration, lesions, lumps, rash, wounds, others Allergic/Immunocompromised: denies: Difficulty Healing, Frequent Infections, Hives, Itching, others Hematologic/Lymphatic: denies: anemia, blood clots, easy bleeding, easy bruising, swollen glands, others Endocrine: denies: excessive hunger, excessive sweating, excessive thirst, excessive urination, flushing, intolerance to cold, intolerance to heat, unexplained weight gain, unexplained weight loss, others Psychiatric: denies: anxiety, bipolar disorder, depression, hopeless, panic disorder, schizophrenia, sleepless, suicidal, others Physical Exam General Appearance: Moderate Distress HEENT: Normal ENT Inspection, Pharynx Normal, TMs Normal Neck: Full Range of Motion, Non-Tender, Normal, Normal Inspection Respiratory: Other (Coarse breath sounds) Cardiovascular: No Edema, No JVD, No Murmur, No Gallop, Normal Peripheral Pulses, Regular Rate/Rhythm Breast Exam: Deferred Gastrointestinal: No Organomegaly, Non Tender, No Pulsatile Mass, Normal Bowel Sounds, Soft Genitalia: Deferred Pelvic: Deferred Rectal: Deferred Extremities: No calf tenderness, Normal capillary refill, Normal inspection, Normal range of motion, Non-tender, No pedal edema Musculoskeletal : Apperance: Normal Neurologic: Alert, development educator II-XII nml as Tested, No Motor Deficits, Normal Affect, Normal Mood, No Sensory Deficits Cerebellar Function: Normal Reflexes: Normal Skin: Dry, Normal Color, Warm Peripheral Pulses: 3+ Radial (R), 3+ Radial (L) Lymphatic: No Adenopathy Was a procedure done? Was a procedure done?: No Differential Dx Considerations may include: Pneumonia Electrolyte imbalance X-Ray, Labs, Meds, VS Patient alert. Complaining of shortness a breath chest pain. Vitals stable. Answering questions. Unable to take deep breaths. Possible pneumonitis pain Possible pneumonia. Risk factors for coronary artery disease. Was given aspirin. Was given nitro. Was given Rocephin. Was given azithromycin. Continue monitoring. Time of 1ST Reevaluation: 14:45 Reevaluation 1ST: Unchanged Patient Education/Counseling: Diagnosis, Treatment, Prognosis Family Education/Counseling: No Family Present Departure 1 Departure Time of Disposition: 14:46 Impression: Primary Impression: Pneumonia Qualified Codes: J18.9 - Pneumonia, unspecified organism Additional Impression: Chest pain of unknown etiology Disposition: ADMITTED INPATIENT Admit to: Med Surg Condition: Guarded Critical Care Note Critical Care Time?: Yes (90 min-critical care time only) Critical care comment: Shortness a breath chest pain continue to monitor Stability Stability form required: No Heart Score Heart Score: Heart Score Response (Comments) Value History Slightly Suspicious 0 EKG Normal 0 Age >65 2 Risk Factors >3 or Hx ASHD 2 Troponin Normal limit 0 Total 4 TYSON MEDEIROS MD January 28, 2025 14:47
[2025-01-28 15:00] LABS: Basophils # (auto) 0 10 ^3/uL (0-0.2); Basophils % (auto) 0.6 % (0.0-2.0); Eosinophils # (auto) 0.2 10 ^3/uL (0-0.8); Eosinophils % (auto) 5.4 % (0.0-7.0); Hematocrit 40.6 % (41.0-53.0); Hemoglobin 13.8 g/dL (13.5-17.5); Lymphocytes % (auto) 26.4 % (10.0-50.0); Mean Corpuscular Hemoglobin 31.5 pg (28.0-32.0); Mean Corpuscular Hgb Conc. 34.1 g/dL (32.0-36.0); Mean Corpuscular Volume 92.2 fL (80.0-100.0); Monocytes # (auto) 0.3 10 ^3/uL (0-1.3); Monocytes % (auto) 8.4 % (0.0-12.0); Neutrophils # (auto) 2.3 10 ^3/uL (1.6-8.6); Neutrophils % (auto) 59.2 % (37.0-80.0); Nucleated Red Blood Cells % 0.1 %; Platelet Count (auto) 241 10^3/uL (140-450); Red Cell Distribution Width 14.4 % (11.8-14.3); White Blood Cell 3.9 10^3/uL (4.4-10.8)
[2025-01-28 15:11] LABS: Chloride 104 mmol/L (98-107); Potassium 4.3 mmol/L (3.5-5.1); Sodium 140 mmol/L (136-145)
[2025-01-28 15:12] LABS: Anion Gap 8 (5-15); Carbon Dioxide 28 mmol/L (20-31)
[2025-01-28 15:13] LABS: Calcium 10.2 mg/dL (8.7-10.4)
[2025-01-28 15:18] LABS: BUN/Creatinine Ratio 17.5 (10.0-20.0)
[2025-01-28 15:50] LABS: Blood Urea Nitrogen 24 mg/dL (9-23); Glucose 120 mg/dL (74-106)
--- NOTE | 2025-01-28 16:36 | DVH ---
CHEST RADIOGRAPH Indication: sob Technique: Single frontal view of the chest was obtained Comparison: XY CHEST PORTABLE on DOS: 01/06/25, XY CHEST PORTABLE on DOS: 01/19/23 FINDINGS: Lines and Tubes: Vascular stent noted. Lungs and Pleura: No focal consolidation. No effusion. No pneumothorax. Cardiomediastinal contours: Unremarkable Bones: No acute osseous abnormality. IMPRESSION: No acute cardiopulmonary disease.
[2025-01-28] MEDS ORDERED: MECLIZINE HCL 25 MG TAB PO PRN (19:30)
[2025-01-28] MEDS ORDERED: ALBUTEROL SULF 2.5 MG/0.5ML(0.5%) NEB SOLN NEB SCH (19:30)
[2025-01-28] MEDS ORDERED: LACTATED RINGER'S 1,000 ML IV ONE (19:30)
[2025-01-28] MEDS ORDERED: IPRATROPIUM BROM 0.5 MG/2.5ML INH SOL NEB SCH (19:30)
[2025-01-28] MEDS ORDERED: DOCUSATE SOD 100 MG CAP PO PRN (19:30)
[2025-01-28] MEDS ORDERED: ONDANSETRON HCL 4 MG/2 ML VIAL IV PRN (19:30)
[2025-01-28 19:42] VITALS: BP_DIAS 59; PULSE 67; RESP 18; TEMP 98.2; O2SAT 96
--- NOTE | 2025-01-28 19:48 | DVHHP2 ---
Admitting Diagnosis: SOB History of Present Illness 85-year-old male came to the ER stating that he has been having cough chest pain shortness a breath for the past two days progressively getting worse. Chest pain radiate to the left shoulder. He has not taken any medication to relieve the chest pain. He is unable to take deep breaths without coughing. Denies any fever. He does have a history of coronary artery disease hypertension. Denies any other symptoms. PAST MEDICAL HISTORY: Asthma, HTN, [place] Surgical History: Hernia Repair Family History: Reviewed,noncontributory to illness Smoker: Non-Smoker Alcohol: Denies ETOH Use Drugs: Denies Drug Use Lives In: Home Allergies: Coded Allergies: NO KNOWN ALLERGIES (Unverified , 01/19/23) Home Meds Active Scripts Azithromycin (Zithromax Tri-Nadir) 500 Mg Tab, 500 MG PO DAILY for 6 Days, #6 TAB Prov:MARGRET WEEKS DO 01/06/25 Amoxicillin & Pot Clavulanate (AUGMENTIN TABLET) 875 Mg Tb, 875 MG PO BID for 10 Days, #20 TAB 0 Refills Prov:FELIPE DE JESUS [facility] 10/03/24 Dzhofujdgfm-Bceoxmly-Um (Bromphen/Pseudoephedrine 30-2-10 mg/5Ml) 1 Syp Syp, 10 ML PO Q6HP PRN for 10 Days, #400 ML Prov:FELIPE DE JESUS EMPLOYMENT COORDINATOR 10/03/24 Acetaminophen (Tylenol 8 Hour Arthritis) 650 Mg Tab, 650 MG PO TID, #30 TAB Prov:SHIRA DELGADO 09/09/24 Azithromycin (Azithromycin) 500 Mg Tab, 1 TAB PO DAILY, #5 TAB Prov:SHIRA DELGADO 09/09/24 Meclizine Hcl (Meclizine Hcl) 25 Mg Tab, 25 MG PO TIDP PRN for 10 Days, #30 TAB Prov:ABRAM CORCORAN MD 01/22/23 Reported Medications Atorvastatin Calcium (ATORVASTATIN CALCIUM) 10 Mg Tab, 1 TAB PO 01/19/23 Finasteride (Finasteride) 5 Mg Tab, 1 TAB PO DAILY 01/19/23 Doxazosin Mesylate (Doxazosin Mesylate) 4 Mg Tab, 1 TAB PO 01/19/23 Lisinopril (Lisinopril) 10 Mg Tab, 0.5 TAB PO DAILY 01/19/23 Vital Signs Vital Signs Date Time Temp Pulse Resp B/P (MAP) Pulse Ox O2 Delivery O2 Flow Rate FiO2 01/28/25 16:52 97.9 62 18 155/55 (88) 97 97.9 Physical Exam gen: 85 y.o. man, sitting on chair. NAD. HEENT: AT/NC Heart: RRR Lung: decrease breath sounds in lung with rhonchi during cough Abd: soft, non-tender, [id number] Msk: no edmea or cyanosis Neuro: aox3, no focal deficit Results Labs Test 01/28/25 15:42 01/28/25 14:52 Range/Units Troponin I High Sensitivity 4 </=54 ng/L White Blood Count 3.9 L 4.4-10.8 10^3/uL Red Blood Count 4.40 L 4.5-5.90 10^6/uL Hemoglobin 13.8 13.5-17.5 g/dL Hematocrit 40.6 L 41.0-53.0 % Mean Corpuscular Volume 92.2 80.0-100.0 fL Mean Corpuscular Hemoglobin 31.5 28.0-32.0 pg Mean Corpuscular Hemoglobin Concent 34.1 32.0-36.0 g/dL Red Cell Distribution Width 14.4 H 11.8-14.3 % Platelet Count 241 140-450 10^3/uL Mean Platelet Volume 6.6 L 6.9-10.8 fL Neutrophils (%) (Auto) 59.2 37.0-80.0 % Lymphocytes (%) (Auto) 26.4 10.0-50.0 % Monocytes (%) (Auto) 8.4 0.0-12.0 % Eosinophils (%) (Auto) 5.4 0.0-7.0 % Basophils (%) (Auto) 0.6 0.0-2.0 % Neutrophils # (Auto) 2.3 1.6-8.6 10 ^3/uL Lymphocytes # (Auto) 1.0 0.4-5.4 10 ^3/uL Monocytes # (Auto) 0.3 0-1.3 10 ^3/uL Eosinophils # (Auto) 0.2 0-0.8 10 ^3/uL Basophils # (Auto) 0 0-0.2 10 ^3/uL Nucleated Red Blood Cells 0.1 % Sodium Level 140 136-145 mmol/L Potassium Level 4.3 3.5-5.1 mmol/L Chloride Level 104 98-107 mmol/L Carbon Dioxide Level 28 20-31 mmol/L Anion Gap 8 5-15 Blood Urea Nitrogen 24 H 9-23 mg/dL Creatinine 1.37 H 0.700-1.30 mg/dL Glomerular Filtration Rate Calc 51 >90 mL/min BUN/Creatinine Ratio 17.5 10.0-20.0 Serum Glucose 120 H 74-106 mg/dL Calcium Level 10.2 8.7-10.4 mg/dL Primary Diagnosis SOB suspect bronchitis r/o PNA larisa on ckd Plan Check ABG Check sputum culture Start ceftriaxone and azithromycin for possible pneumonia Nebulizer q.6 hours Prednisone 40 mg daily Check CRP, pro count for possible pneumonia versus bronchitis IV fluids If he renal function does not improve check renal ultrasound We will order urine sodium urine creatinine Saturation goal greater than 92% Robitussin for cough regular Full code Lovenox for DVT prophylaxis PPI for GI prophylaxis while on steroid Plan discussed with: Patient Problems List: (1) Bronchitis Status: Acute (2) Pneumonia Status: Acute (3) Acute kidney injury superimposed on CKD Date of Service: January 28, 2025 Billing Provider: YEN FORD MD Common Visit Codes: [id number] INP/OBS CARE (MOD) YEN FORD MD January 28, 2025 19:48
[2025-01-28] MEDS ORDERED: AZITHROMYCIN 500MG/ 250ML 250 ML IV SCH (20:00)
[2025-01-28] MEDS ORDERED: cefTRIAXone 1GM/50ML D5W 50 ML IV SCH (20:00)
[2025-01-28] MEDS: ASPirin 325 MG TAB PO ONE (22:56)
[2025-01-28] MEDS: NITROGLYCERIN 0.4 MG SL TAB SL ONE (22:56)
[2025-01-28] MEDS: predniSONE 20 MG TAB PO SCH (22:58)
[2025-01-28] MEDS: SODIUM CHLOR 0.9% PF (SALINE LOCK) 10ML VIAL/SYR IV SCH (22:58)
[2025-01-28] MEDS: cefTRIAXone 1GM/50ML D5W 50 ML IV ONE ×2 (22:58→23:18)
[2025-01-28] MEDS: AZITHROMYCIN 500MG/ 250ML 250 ML IV ONE ×2 (23:19→23:25)
[2025-01-29] VITALS (14 sets, daily range): BP systolic 107–131; BP diastolic 51–69; PULSE 60–96; RESP 16–83; TEMP 97.1–98.1; O2SAT 94–100
[2025-01-29] MEDS: IPRATROPIUM BROM 0.5 MG/2.5ML INH SOL NEB SCH (00:27)
[2025-01-29] MEDS: ALBUTEROL SULF 2.5 MG/0.5ML(0.5%) NEB SOLN NEB SCH (00:27)
[2025-01-29] MEDS: guaiFENesin 200 MG/10 ML UD PO PRN (02:12)
[2025-01-29] MEDS: ACETAMINOPHEN 325 MG TAB PO PRN (02:13)
[2025-01-29] MEDS: HYDROcodone-ACET 5/325MG TAB PO PRN (03:29)
[2025-01-29] MEDS: LACTATED RINGER'S 1,000 ML IV ONE (03:31)
[2025-01-29 05:53] LABS: Basophils # (auto) 0 10 ^3/uL (0-0.2); Basophils % (auto) 0.3 % (0.0-2.0); Eosinophils # (auto) 0 10 ^3/uL (0-0.8); Eosinophils % (auto) 0.2 % (0.0-7.0); Hematocrit 39.6 % (41.0-53.0); Hemoglobin 13.4 g/dL (13.5-17.5); Lymphocytes # (auto) 0.4 10 ^3/uL (0.4-5.4); Lymphocytes % (auto) 9.3 % (10.0-50.0); Mean Corpuscular Hgb Conc. 33.8 g/dL (32.0-36.0); Mean Corpuscular Volume 91.7 fL (80.0-100.0); Monocytes # (auto) 0.1 10 ^3/uL (0-1.3); Monocytes % (auto) 1.6 % (0.0-12.0); Neutrophils # (auto) 3.9 10 ^3/uL (1.6-8.6); Neutrophils % (auto) 88.6 % (37.0-80.0); Platelet Count (auto) 237 10^3/uL (140-450); Red Blood Cells 4.32 10^6/uL (4.5-5.90); Red Cell Distribution Width 14.2 % (11.8-14.3); White Blood Cell 4.4 10^3/uL (4.4-10.8)
[2025-01-29 06:17] LABS: Alanine Aminotransferase 21 U/L (7-40); Alkaline Phosphatase 59 U/L (46-116); Anion Gap 8 (5-15); Aspartate Aminotransferase 18 U/L (13-40); BUN/Creatinine Ratio 19.1 (10.0-20.0); Calcium 10.1 mg/dL (8.7-10.4); Carbon Dioxide 26 mmol/L (20-31); Chloride 105 mmol/L (98-107); Potassium 4.2 mmol/L (3.5-5.1); Sodium 139 mmol/L (136-145); Total Protein 7.9 g/dL (5.7-8.2)
[2025-01-29 06:18] LABS: Bilirubin, Total 0.6 mg/dL (0.2-1.0)
[2025-01-29 06:19] LABS: Blood Urea Nitrogen 26 mg/dL (9-23); Glucose 138 mg/dL (74-106)
[2025-01-29] MEDS ORDERED: PATIENTS OWN MEDICATION (Lisinopril 0.5 TAB) PO SCH (10:00)
[2025-01-29] MEDS: PANTOPRAZOLE 40 MG/10 ML VIAL INJ IV SCH (10:32)
[2025-01-29] MEDS: ENOXAPARIN SOD 40 MG/0.4 ML SYRINGE SC SCH (10:36)
[2025-01-29] MEDS: FINASTERIDE 5 MG TAB PO SCH (10:37)
[2025-01-29] MEDS: TAMSULOSIN HYDROCHLORIDE 0.4 MG CAP PO SCH (10:38)
[2025-01-29] MEDS: ATORVASTATIN 20 MG TAB PO SCH (10:38)
[2025-01-29] MEDS: LISINOPRIL 5 MG TAB PO SCH (10:39)
[2025-01-29] MEDS: cefTRIAXone 1GM/50ML D5W 50 ML IV SCH (10:40)
[2025-01-29] MEDS: AZITHROMYCIN 500MG/ 250ML 250 ML IV SCH (10:51)
[2025-01-29 11:27] LABS: Urine Bacteria None Seen /hpf (None Seen)
[2025-01-29 11:42] LABS: Urine Blood 1+ /uL (Negative); Urine Clarity Clear (Clear); Urine Color Yellow (Yellow); Urine Hyaline Cast FEW /lpf (0 - 2); Urine Mucus FEW (None Seen); Urine Protein, UAD TRACE (Negative); Urine Specific Gravity 1.028 (1.001-1.035); Urine Squamous Epithelial Cell None Seen /hpf (<5); Urine Urobilinogen Normal (Negative); Urine WBC 1 /HPF (0-3); Urine pH 5.5 (5.0-9.0)
--- NOTE | 2025-01-29 15:00 | DVHPNRES ---
Progress Note Date Seen: January 29, 2025 Resident Creating Document: ANGELA HEARD RESIDENT Medical Necessity Reason Pt with a Central, PICC or Fol: No Subjective Review of Systems Patient seen and examined at bedside. Patient continued to have productive cough, Whitish sputum Denied fever, chills, chest pain, any other symptoms No any other new complaint Saturating 98% on room air No any other complaint Objective vital signs Vital Sign Date Time Temp Pulse Resp B/P (MAP) Pulse Ox O2 Delivery O2 Flow Rate FiO2 01/29/25 12:17 67 83 100 01/29/25 10:39 117/69 01/29/25 10:00 Room Air 0.0 01/29/25 10:00 21 01/29/25 05:00 98.1 98.1 Total Intake and Output 01/28/25 01/28/25 01/29/25 15:00 23:00 07:00 Intake Total 300 ml Output Total 0 ml Balance 300 ml medications Current Medications Medications Dose Ordered Sig/Anne Route Start Time Stop Time Status Last Admin Dose Admin Prednisone 40 mg DAILY PO 01/28/25 19:30 01/29/25 10:39 40 MG Guaifenesin 200 mg Q8H PRN PO 01/28/25 19:30 01/29/25 02:12 200 MG Sodium Chloride 10 ml Q8HR IV 01/28/25 22:00 01/29/25 05:16 10 ML Docusate Sodium 100 mg BIDPRN PRN PO 01/28/25 19:30 Acetaminophen 650 mg Q6HP PRN PO 01/28/25 19:30 01/29/25 02:13 650 MG Acetaminophen/ Hydrocodone Bitart 1 tab Q4HP PRN PO 01/28/25 19:30 01/29/25 03:29 1 TAB Ondansetron HCl 4 mg Q4HP PRN IV 01/28/25 19:30 Enoxaparin Sodium 40 mg DAILY SC 01/29/25 10:00 01/29/25 10:36 40 MG Finasteride 5 mg DAILY PO 01/29/25 10:00 01/29/25 10:37 5 MG Meclizine HCl 25 mg TIDP PRN PO 01/28/25 19:30 Atorvastatin Calcium 10 mg DAILY PO 01/29/25 10:00 01/29/25 10:38 10 MG Tamsulosin HCl 0.8 mg DAILY PO 01/29/25 10:00 01/29/25 10:38 0.8 MG Lisinopril 5 mg DAILY PO 01/29/25 10:00 01/29/25 10:39 5 MG Albuterol 2.5 mg Q6H NEB 01/29/25 00:00 01/29/25 12:07 2.5 MG Ipratropium Industry 0.5 mg Q6H NEB 01/29/25 00:00 01/29/25 12:07 0.5 MG Pantoprazole Sodium 40 mg DAILY IV 01/29/25 10:00 01/29/25 10:32 40 MG Azithromycin 250 ml @ 125 mls/hr Q24H IV 01/29/25 10:00 01/29/25 10:51 125 MLS/HR Ceftriaxone Sodium 50 ml @ 100 mls/hr Q24H IV 01/29/25 10:00 01/29/25 10:40 100 MLS/HR Examination General Appearance: Cooperative. Well developed. Well nourished. NAD Head Exam: Normal inspection Neck Exam: Normal inspection. Non-tender. Normal alignment Pulmonary/Respiratory: Chest non-tender. Clear bilateral breath sounds Cardiovascular/Chest: Regular rate and rhythm. No murmurs. No JVD. Peripheral Pulses: 2+ Radial (R). 2+ Radial (L). 2+ Pedal (R). 2+ Pedal (L) Abdominal Exam: Normal bowel sounds. Soft. Nontender. No hepatospenomegaly. No masses Ankle Exam: Negative ankle edema Lower extremities: Negative lower extremity edema Neuro/Mental Status: A&O x4. Coherent Thoughts/Psych: Normal thought pattern. Appropriate mood and affect. Good judgement and insight Appearance: In no acute distress Skin Exam: Normal inspection. Normal color. Warm. Dry laboratory and microbiology Laboratory Tests 01/29/25 05:21 Test 01/29/25 05:21 Range/Units Serum Glucose 138 H 74-106 mg/dL Problem List/Assessment/Plan Problem List/Assessment/Plan Shortness of breath likely related to acute bronchitis versus viral chronic cough Pneumonia Gram-positive versus negative BOUBACAR on CKD stage 2 History of coronary artery disease with PTCA Hyperlipidemia Hypertension BPH Plan/recommendation -continue with IV antibiotic ceftriaxone azithromycin for questionable pneumonia -prednisolone 40 mg p.o. daily -nebulizer q.6 hours -BOUBACAR on CKD: Renal ultrasound pending. -pending sputum culture -p.r.n. Robitussin for chronic cough -PUD prophylaxis with Protonix -DVT prophylaxis with Lovenox Goals of care discussed greater than 24 minutes, full code status. Plan discussed with Dr. mcnulty Plan discussed with: Patient, Other (RN) Date of Service: January 29, 2025 Billing Provider: FRANSISCA MCNULTY MD Common Visit Codes: 70036-GZMPONIAGN INP/OBS CARE(HIGH) ANGELA HEARD RESIDENT January 29, 2025 15:00 FRANSISCA MCNULTY MD January 30, 2025 23:26
--- NOTE | 2025-01-29 15:43 | DVH ---
US KIDNEY HISTORY: ckd COMPARISON: None TECHNIQUE: Transverse and longitudinal grayscale and color doppler images were obtained of the kidney s and bladder. FINDINGS: Right kidney: Size: 11.8 cm Cortical thickness: thin Echogenicity: low Stones: None Masses: None Hydronephrosis: None Ureters: Not well visualized. Other: None Left kidney: Size: 10.5 cm Cortical thickness: thin Echogenicity: low Stones: None Masses: None Hydronephrosis: None Ureters: Not well visualized. Other: None Bladder: Normal Other: Large prostate. IMPRESSION: Echogenic and thin renal cortex can be seen with medical renal disease.
[2025-01-29 18:47] LABS: COVID19 ANTIGEN SOFIA FIA NEGATIVE (NEGATIVE)
[2025-01-30] VITALS (13 sets, daily range): BP systolic 93–120; BP diastolic 53–63; PULSE 62–84; RESP 16–20; TEMP 97.1–98.5; O2SAT 95–100
[2025-01-30 06:15] LABS: Basophils # (auto) 0 10 ^3/uL (0-0.2); Basophils % (auto) 0.1 % (0.0-2.0); Eosinophils # (auto) 0 10 ^3/uL (0-0.8); Hematocrit 36.3 % (41.0-53.0); Hemoglobin 12.4 g/dL (13.5-17.5); Lymphocytes # (auto) 0.6 10 ^3/uL (0.4-5.4); Lymphocytes % (auto) 7.2 % (10.0-50.0); Mean Corpuscular Hemoglobin 31.4 pg (28.0-32.0); Mean Corpuscular Hgb Conc. 34.2 g/dL (32.0-36.0); Mean Corpuscular Volume 91.8 fL (80.0-100.0); Monocytes # (auto) 0.4 10 ^3/uL (0-1.3); Monocytes % (auto) 5.5 % (0.0-12.0); Neutrophils % (auto) 87.2 % (37.0-80.0); Platelet Count (auto) 241 10^3/uL (140-450); Red Blood Cells 3.96 10^6/uL (4.5-5.90); Red Cell Distribution Width 14.5 % (11.8-14.3)
[2025-01-30 06:33] LABS: Alanine Aminotransferase 18 U/L (7-40); Albumin 3.6 g/dL (3.2-4.8); Alkaline Phosphatase 45 U/L (46-116); Anion Gap 9 (5-15); Aspartate Aminotransferase 15 U/L (13-40); BUN/Creatinine Ratio 23.1 (10.0-20.0); Blood Urea Nitrogen 28 mg/dL (9-23); Calcium 8.9 mg/dL (8.7-10.4); Carbon Dioxide 24 mmol/L (20-31); Chloride 106 mmol/L (98-107); Glucose 137 mg/dL (74-106); Potassium 4.2 mmol/L (3.5-5.1); Sodium 139 mmol/L (136-145)
[2025-01-30 06:34] LABS: Bilirubin, Total 0.5 mg/dL (0.2-1.0)
[2025-01-30] MEDS ORDERED: PRED20TA2 PO (10:51)
[2025-01-30] MEDS ORDERED: AUG875T PO (10:51)
[2025-01-30] MEDS ORDERED: ATOR20TA50 PO (10:51)
--- NOTE | 2025-01-30 14:03 | DVHDSRES ---
Discharge Summary Date of Admission Resident Creating Document: ANGELA HEARD RESIDENT January 28, 2025 at 19:24 Date of Discharge: January 30, 2025 Admitting Diagnosis shortness of breath Labs/Diagnostic Data: Laboratory Results Test 01/30/25 05:13 01/29/25 17:59 01/29/25 11:25 01/28/25 15:42 White Blood Count 8.0 10^3/uL (4.4-10.8) Red Blood Count 3.96 10^6/uL (4.5-5.90) Hemoglobin 12.4 g/dL (13.5-17.5) Hematocrit 36.3 % (41.0-53.0) Mean Corpuscular Volume 91.8 fL (80.0-100.0) Mean Corpuscular Hemoglobin 31.4 pg (28.0-32.0) Mean Corpuscular Hemoglobin Concent 34.2 g/dL (32.0-36.0) Red Cell Distribution Width 14.5 % (11.8-14.3) Platelet Count 241 10^3/uL (140-450) Mean Platelet Volume 7.0 fL (6.9-10.8) Neutrophils (%) (Auto) 87.2 % (37.0-80.0) Lymphocytes (%) (Auto) 7.2 % (10.0-50.0) Monocytes (%) (Auto) 5.5 % (0.0-12.0) Eosinophils (%) (Auto) 0.0 % (0.0-7.0) Basophils (%) (Auto) 0.1 % (0.0-2.0) Neutrophils # (Auto) 7.0 10 ^3/uL (1.6-8.6) Lymphocytes # (Auto) 0.6 10 ^3/uL (0.4-5.4) Monocytes # (Auto) 0.4 10 ^3/uL (0-1.3) Eosinophils # (Auto) 0 10 ^3/uL (0-0.8) Basophils # (Auto) 0 10 ^3/uL (0-0.2) Nucleated Red Blood Cells 0.0 % Sodium Level 139 mmol/L (136-145) Potassium Level 4.2 mmol/L (3.5-5.1) Chloride Level 106 mmol/L (98-107) Carbon Dioxide Level 24 mmol/L (20-31) Anion Gap 9 (5-15) Blood Urea Nitrogen 28 mg/dL (9-23) Creatinine 1.21 mg/dL (0.700-1.30) Glomerular Filtration Rate Calc 59 mL/min (>90) BUN/Creatinine Ratio 23.1 (10.0-20.0) Serum Glucose 137 mg/dL (74-106) Calcium Level 8.9 mg/dL (8.7-10.4) Total Bilirubin 0.5 mg/dL (0.2-1.0) Aspartate Amino Transferase (AST) 15 U/L (13-40) Alanine Aminotransferase (ALT) 18 U/L (7-40) Alkaline Phosphatase 45 U/L (46-116) Total Protein 7.0 g/dL (5.7-8.2) Albumin 3.6 g/dL (3.2-4.8) SARS-CoV-2 Antigen (Rapid) Negative (NEGATIVE) Urine Color Yellow (Yellow) Urine Clarity Clear (Clear) Urine pH 5.5 (5.0-9.0) Urine Specific [place] 1.028 (1.001-1.035) Urine Protein Trace (Negative) Urine Ketones Negative (Negative) Urine Blood 1+ /uL (Negative) Urine Nitrite Negative (Negative) Urine Bilirubin Negative (Negative) Urine Urobilinogen Normal mg/dL (Negative) Urine Leukocyte Esterase Negative /uL (Negative) Urine RBC 3 /hpf (0 - 3) Urine Microscopic WBC 1 /HPF (0-3) Urine Squamous Epithelial Cells None seen /hpf (<5) Urine Bacteria None seen /hpf (None Seen) Urine Hyaline Casts Few /lpf (0 - 2) Urine Mucus Few (None Seen) Urine Glucose Normal mg/dL (Normal) Troponin I High Sensitivity 4 ng/L (</=54) Test 01/28/25 14:52 C-Reactive Protein High Sensitivity 0.13 mg/dL (<1.0) Other Laboratory Tests 01/30/25 05:13 Brief Hx & Hospital Course: Patient is 85-year-old male with past medical history of coronary artery disease with PTCA, hypertension, BPH who presented to hospital with a chief complaint of worsening shortness of breath for past few days associated with worsening cough with expectoration, whitish in color, not associated with fever. As per patient he had similar symptoms few weeks ago where he was treated with antibiotic. Patient was treated with IV antibiotics ceftriaxone azithromycin for questionable pneumonia, given prednisolone 40 mg p.o. daily as well. Over the course of hospitalization patient's symptoms significantly improved, hemodynamically stable, no fever, x-ray did not show consolidation, therefore patient will be discharged home with oral antibiotic Augmentin and few days of steroids and advised to follow with primary care physician in out patient setting. Condition at Discharge: Stable Final Diagnosis/Problems List Shortness of breath likely related to acute bronchitis post viral chronic cough Ruled out Pneumonia Gram-positive versus negative BOUBACAR on CKD stage 2 History of coronary artery disease with PTCA Hyperlipidemia Hypertension BPH Discharge Disposition: Home Discharge Instruct/Medications Diet: Regular Activity: No Restrictions, As Tolerated Follow Up/Referral: -follow up with pcp in 2 weeks Medications: see prescription Discharge Statement: "Patient was advised to return to the ER or call 911 if any headaches, dizziness, shortness of breath, chest pain, abdominal pain, bleeding, fevers, or worsening of medical condition. Patient was counseled about treatment plan, medications, possible side effects, patientverbalized understanding. All questions were answered to the best of my ability. This discharge took greater then 30 minutes in planning, reviewing documentation, counseling the patient, and discussing with other team members." ASSESSMENT ASSESSMENT Assessment Acute Bronchitis Possible post viral cough Date of Service: January 30, 2025 Billing Provider: FRANSISCA MCNULTY MD Common Visit Codes: 10617-FFV/OBS DISCH DAY >30min ANGELA HEARD RESIDENT January 30, 2025 14:03 FRANSISCA MCNULTY MD January 30, 2025 23:27
== END 2025-01-30 14:00 | disposition home or self-care (01) | DRG 202 ==
LOC: ER 14:21 → OVERFLOW 19:24 → EAST 01-29 01:50
PROVIDERS: ADMIT Internal Medicine; ATTEND Internal Medicine
DX: J20.9 Acute bronchitis, unspecified (principal); N17.0 Acute kidney failure with tubular necrosis; N40.0 Benign prostatic hyperplasia without lower urinary tract symptoms; I25.10 Atherosclerotic heart disease of native coronary artery without angina pectoris; J45.909 Unspecified asthma, uncomplicated; I12.9 Hypertensive chronic kidney disease with stage 1 through stage 4 chronic kidney disease, or unspecified chronic kidney disease; N18.2 Chronic kidney disease, stage 2 (mild); E78.5 Hyperlipidemia, unspecified; Z79.899 Other long term (current) drug therapy; Z79.2 Long term (current) use of antibiotics
CPT/HCPCS: 36415; 71045; 76775; 80048; 80053; 81001; 84484; 85025; 86141; 87070; 87077; 87081; 87186; 87205; 87426; 94640; 96365; 96367; 99291; G0378; J2470